=== PATIENT | female | born 1970 | race African-American/Black ===

== ENCOUNTER 2019-02-08 10:52 | Emergency (ER) | payer MEDICAID ==
[~2019-02-08] VITALS: Ht 175.3 cm; Wt 82.0 kg
[2019-02-08] MEDS ORDERED: SODIUM CHLORIDE 0.9% 1,000 ML IV ONE (12:03)
[2019-02-08] MEDS ORDERED: ACETAMINOPHEN 325MG TABLET PO ONE (12:15)
[2019-02-08] MEDS ORDERED: HYDRALAZINE 20MG/ML VIAL IV ONE (12:15)
[2019-02-08] MEDS ORDERED: METOCLOPRAMIDE HCL 10MG/2ML VIAL IV ONE (12:15)
[2019-02-08 12:20] LABS: BASOPHILS % 0.9 % (0.0-2.0); EOSINOPHILS % 0.2 % (0.0-5.0); HEMATOCRIT. 48.7 % (36.0-48.0); LYMPHOCYTES % 19.7 % (20.0-50.0); MEAN CORPUSCULAR VOLUME 85.4 fL (81.0-99.0); MEAN PLATELET VOLUME 8.1 fl (7.4-10.4); MONOCYTES % 4.2 % (2.0-8.0); PLATELET 349 x1000/uL (130-400); RED CELL DISTRIBUTION WIDTH 12.8 % (11.6-14.6)
[2019-02-08 12:27] LABS: CHLORIDE 104 mEq/L (98-107)
[2019-02-08 14:23] VITALS: BP 161/91
== END 2019-02-08 14:21 | disposition home or self-care (01) ==
LOC: ER 10:52
DX: I10 Essential (primary) hypertension (principal); R11.2 Nausea with vomiting, unspecified; Z98.890 Other specified postprocedural states; Z88.6 Allergy status to analgesic agent
CPT/HCPCS: 36415; 80053; 85025; 93005; 96361; 96374; 96375; 99284; J0360; J2765; J7030; Z7610

== ENCOUNTER 2019-09-27 10:09 | Emergency (ER) | payer MEDICAID ==
[~2019-09-27] VITALS: Ht 175.3 cm; Wt 77.0 kg
[2019-09-27] MEDS ORDERED: SODIUM CHLORIDE 0.9% 1,000 ML IV ONE (11:36)
[2019-09-27] MEDS ORDERED: METOCLOPRAMIDE HCL 10MG/2ML VIAL IV ONE (11:45)
[2019-09-27] MEDS ORDERED: CLONIDINE 0.2MG TABLET PO ONE (11:45)
[2019-09-27] MEDS ORDERED: DIPHENHYDRAMINE 50MG/ML VIAL IV ONE (11:45)
[2019-09-27 12:02] LABS: BASOPHILS % 0.5 % (0.0-2.0); HEMOGLOBIN. 13.8 g/dL (12.0-16.0); MEAN CORPUSCULAR HEMOGLOBIN 28.1 pg (28.0-32.0); MEAN CORPUSCULAR VOLUME 85.2 fL (81.0-99.0); MEAN PLATELET VOLUME 8.3 fl (7.4-10.4); NEUTROPHILS % 71.5 % (40.0-76.0); PLATELET 356 x1000/uL (130-400); RED BLOOD CELL COUNT 4.92 mill/uL (4.2-5.4); RED CELL DISTRIBUTION WIDTH 12.3 % (11.6-14.6)
[2019-09-27 12:18] LABS: CHLORIDE 106 mEq/L (98-107)
[2019-09-27 12:22] LABS: HCG SCREEN NEGATIVE
[2019-09-27 15:26] VITALS: BP 130/83
== END 2019-09-27 15:28 | disposition home or self-care (01) ==
LOC: ER 10:09
DX: I10 Essential (primary) hypertension (principal); R51 Headache; Z88.6 Allergy status to analgesic agent
CPT/HCPCS: 36415; 80048; 84703; 85025; 93005; 96361; 96374; 96375; 99284; J1200; J2765; J7030; Z7610